=== PATIENT | male | born 1960 | race Caucasian/White ===

== ENCOUNTER → 2016-10-28 | Outpatient (CLI) | payer OTHER ==
--- NOTE | 2016-10-29 08:39 | REP ---
MRI LUMBAR SPINE WITHOUT CONTRAST: HISTORY: Upper back pain. Lifting injury. Left leg and hip pain. No comparison radiographs. TECHNIQUE: Sagittal and axial T1 and T2-weighted scans are acquired in the usual fashion with and without fat saturation. Sequences include spin echo, turbo spin-echo, and STIR imaging sequences. MRI FINDINGS: Cortical and medullary bone signal intensity are normal. Lumbar vertebral body heights are preserved. Alignment is normal. Conus medullaris terminates at the L1 level and is unremarkable in appearance. There is degenerative disc disease to some degree at each level, most pronounced at L4-5 and L3-4. There is disc space narrowing and osteophyte formation and posterior bulging at the T11-12 level. No cord compression seen. Normal caliber aorta. At L1-2, axial and sagittal images demonstrate left-sided disc bulging no central canal stenosis or neural foraminal narrowing. At L2-3, canal size is borderline. There is diffuse disc bulging. Mild facet and ligamentum hypertrophy are seen along with developmentally short pedicles. At L3-4, there is mild central canal stenosis due to diffuse moderate disc bulging, developmentally short pedicles and some ligamentum flavum and facet hypertrophy. There is mild bilateral neural foraminal encroachment from bulging disc margins. At L4-5, canal size is borderline. There is diffuse disc bulging. There is neural foraminal narrowing on the left due to discogenic spurring and facet hypertrophy. Moderate facet hypertrophy is noted left more so than right and L4-5. There is some fluid in the left facet joint. At L5-S1, there is facet hypertrophy bilaterally minimal disc bulging. No central canal stenosis or neural foraminal narrowing is seen. IMPRESSION: Central canal stenosis at L3-4 and to a lesser extent L2-3 and L4-5. Left-sided neural foraminal narrowing at L4-5 and mild encroachment at L3-4 bilaterally. Signed by Kemar Leon MD 10/29/2016 10:06 A
--- NOTE | 2016-10-29 08:41 | REP ---
MRI THORACIC SPINE WITHOUT CONTRAST: HISTORY: Upper back pain. TECHNIQUE: Sagittal and axial T1 and T2-weighted scans are acquired in the usual fashion with and without fat saturation. Sequences include spin echo, turbo spin-echo, and STIR imaging sequences. FINDINGS: Thoracic vertebral body heights are preserved. Alignment is normal. Cortical and medullary bone signal intensity is normal. Thoracic cord is normal in coarse, caliber and signal intensity. There are Schmorl's nodes at the T11-12 level. Mild degenerative disc disease is seen with disc space narrowing and decreased signal intensity at several mid thoracic levels. There is a small right posterior disc bulge at T6-7 effacing the ventral subarachnoid space. There is a left posterior disc protrusion at T 3-4 effacing the left ventral lateral subarachnoid space but not compressing the cord. No other thoracic disc protrusion is seen. No neural foraminal narrowing is seen. There is some thoracic facet hypertrophy at T10-11, T9-10, T8-9 and T7-8 bilaterally. No cord compressive lesion or neural foraminal lesion is seen. IMPRESSION: Mild degenerative spondylosis changes as above. No cord compressive lesion seen. Signed by Kemar Leon MD 10/29/2016 10:07 A
== END ==
LOC: M RAD 17:19
PROVIDERS: ATTEND Emergency Medicine
DX: M47.894 Other spondylosis, thoracic region (principal); M54.17 Radiculopathy, lumbosacral region

== ENCOUNTER → 2020-10-10 | Outpatient (CLI) | payer SELFPAY | LOC: M LABSMTC 08:35 | PROVIDERS: ATTEND Pediatrics | DX: Z20.822 Contact with and (suspected) exposure to COVID-19 (principal) ==

== ENCOUNTER → 2020-10-27 | Outpatient (CLI) | payer SELFPAY | LOC: M LABSMTC 09:39 | PROVIDERS: ATTEND Pediatrics | DX: Z20.828 Contact with and (suspected) exposure to other viral communicable diseases (principal) ==

== ENCOUNTER → 2024-08-02 | Outpatient (CLI) | payer MEDICARE | LOC: M RAD 07:28 | PROVIDERS: ATTEND Internal Medicine Gastroenterology | DX: K31.89 Other diseases of stomach and duodenum (principal); W44.F1XA Bezoar entering into or through a natural orifice, initial encounter | CPT/HCPCS: 78264; A9541 ==

== ENCOUNTER 2025-09-14 11:58 | Inpatient (IN) | payer MEDICARE, OTHER ==
[2025-09-14] VITALS (27 sets, daily range): BP systolic 77–156; BP diastolic 45–89; TEMP 97.9–99; O2SAT 87–100
[~2025-09-14] VITALS: Ht 182.9 cm; Wt 71.6 kg
[2025-09-14] MEDS ORDERED: DEXTROSE 50% 50 ML SYRINGE As Ordered ONE (12:19)
[2025-09-14] MEDS: DEXTROSE 50% (25 GM/50 ML) VIAL IV ONE (12:22)
[2025-09-14 12:29] LABS: BASO # 0.0 10^3/uL (0.0-0.2); BASO % 0.1 % (0.0-1.0); EOS # 0.0 10^3/uL (0.0-0.5); EOS % 0.2 % (0.0-3.0); LYMPH # 0.9 10^3/uL (1.5-5.0); LYMPH % 10.1 % (24.0-44.0); MONO # 0.4 10^3/uL (0.0-0.8); MONO % 4.3 % (2.0-8.0); NEUTROPHILS # 7.4 10^3/uL (1.5-8.5); NEUTROPHILS % 84.5 % (36.0-66.0); PLATELET COUNT, AUTOMATED 225 10^3/uL (150-450)
[2025-09-14 13:10] LABS: VENOUS BASE EXCESS -15.2 (-2.0-2.0); VENOUS HCO3 13.5 MMOL/L (23.0-27.0); VENOUS O2 SATURATION 63.4 % (60.0-80.0); VENOUS PARTIAL PRESSURE CO2 44.2 mmHg (38.0-50.0); VENOUS PARTIAL PRESSURE O2 38.0 mmHg (30.0-50.0); VENOUS PH 7.104 UNITS (7.330-7.430); VENOUS STANDARD HCO3 12.2 MMOL/L; VENOUS TOTAL CO2 14.9 MMOL/L (24.0-28.0)
[2025-09-14 13:14] LABS: ALT/SGPT < 9 U/L (7.0-40); AST/SGOT 10 U/L (<34); CALCIUM LEVEL 6.7 MG/DL (8.3-10.6); CARBON DIOXIDE LEVEL 16 MMOL/L (20-31); CHLORIDE LEVEL 113 MMOL/L (98-107); CK-MB VALUE MASS 5.6 NG/ML (<3.6); CREATININE FOR GFR 4.67 MG/DL (0.70-1.30); GLOMERULAR FILTRATION RATE 13.1 (>49); MAGNESIUM LEVEL 1.2 MG/DL (1.8-2.4); POTASSIUM SERUM 3.9 MMOL/L (3.5-5.1); SODIUM LEVEL 141 MMOL/L (136-145)
[2025-09-14] MEDS: LIDOCAINE 2% 5 ML JELLY UROJET TOP ONE (13:15)
[2025-09-14 13:16] LABS: C REACTIVE PROTEIN QUANTITATIV 2.89 MG/DL (<1.0); CPK CREATINE PHOSPHOKINASE 46 U/L (46-171); MB/CK RELATIVE INDEX 12.17 (< OR =4)
[2025-09-14 13:18] LABS: FREE T4 1.01 NG/DL (0.89-1.76)
[2025-09-14 13:26] LABS: KETONE, URINE AUTO RFX NEGATIVE (NEGATIVE); NITRITE, URINE AUTO RFX NEGATIVE (NEGATIVE); RBC, URINE AUTO RFX 28 /HPF (0-3); SQUAM EPITHELIAL CELL UR AURFX 0 /HPF (0-6)
[2025-09-14 13:28] LABS: LEUKOCYTE ESTERASE UR AUTO RFX 1+ (NEGATIVE); WBC, URINE AUTO RFX TNTC /HPF (0-3)
[2025-09-14] MEDS: PIPERACILLIN/TAZOBACTAM SOD 4.5 GM in DEXTROSE 5% (D5W) ADV/MINI-BAG 50 ML IV ONE (13:32)
[2025-09-14] MEDS: [UNRECOGNIZED DRUG - OTHER] IV STA (13:32)
[2025-09-14] MEDS: NS 0.9% IV STA (13:32)
[2025-09-14] MEDS ORDERED: NOREPINEPHRINE 4 MG IN D5W 250 ML IVBAG (16 MCG/ML) As Ordered ONE (13:37)
[2025-09-14 13:38] LABS: INR 1.3
[2025-09-14] MEDS: NOREPINEPHRINE 4MG IN D5 250ML 4 MG in IV 1 EA IV SCH ×2 (13:42→17:44)
[2025-09-14 14:12] LABS: CK-MB VALUE MASS 6.4 NG/ML (<3.6)
[2025-09-14] MEDS: SODIUM BICARBONATE 150 MEQ in D5W 1,000 ML IV SCH (14:14)
[2025-09-14 14:15] LABS: CPK CREATINE PHOSPHOKINASE 64 U/L (46-171); MB/CK RELATIVE INDEX 10.00 (< OR =4)
[2025-09-14] MEDS: MAG SULF 1GM/100ML (MAG RUN) 1 GM in IV 1 EA IV ONE (14:42)
[2025-09-14] MEDS ORDERED: VITA100017 PO (14:47)
[2025-09-14] MEDS ORDERED: TAMS1CAP17 PO (14:47)
[2025-09-14] MEDS ORDERED: MECL-86 PO (14:47)
[2025-09-14] MEDS ORDERED: LOPE1CAP5 PO (14:47)
[2025-09-14] MEDS: D10W 1,000 ML IV SCH (14:47)
[2025-09-14] MEDS ORDERED: TIZA10TA PO (14:47)
[2025-09-14] MEDS ORDERED: FERR325T19 PO (14:47)
[2025-09-14] MEDS ORDERED: GLIP5TAB17 PO (14:47)
[2025-09-14] MEDS ORDERED: METF-838 PO (14:48)
[2025-09-14] MEDS ORDERED: HOME MED LIST COMPLETE! XX SCH (14:50)
[2025-09-14] MEDS ORDERED: D10W 1,000 ML IV SCH (15:40)
[2025-09-14] MEDS: ONDANSETRON 4MG/2ML VIAL IV PRN (17:44)
[2025-09-14] MEDS: metroNIDAZOLE 500 MG in IV 1 EA IV SCH (17:45)
[2025-09-14] MEDS: SODIUM BICARBONATE 100 MEQ in D5W 1,000 ML IV SCH (17:52)
[2025-09-14] MEDS: VANCOMYCIN 125MG CAPSULE PO SCH (18:26)
[2025-09-14] MEDS: cefTRIAXone SOD 1 GM in DEXTROSE 5% (D5W) ADV/MINI-BAG 50 ML IV SCH (18:27)
[2025-09-14] MEDS: HEPARIN SOD 5000 UNITS/ML 1 ML VIAL/SYRINGE SC SCH (21:11)
[2025-09-14] MEDS ORDERED: PIPERACILLIN/TAZOBACTAM SOD 2.25 GM in DEXTROSE 5% (D5W) ADV/MINI-BAG 50 ML IV SCH (22:00)
[2025-09-15] VITALS (98 sets, daily range): BP systolic 70–174; BP diastolic 44–91; TEMP 97.7–99.1; O2SAT 93–100
[2025-09-15 04:34] LABS: BASO # 0.0 10^3/uL (0.0-0.2); BASO % 0.2 % (0.0-1.0); EOS # 0.1 10^3/uL (0.0-0.5); EOS % 0.7 % (0.0-3.0); LYMPH # 1.2 10^3/uL (1.5-5.0); LYMPH % 12.5 % (24.0-44.0); MONO # 0.7 10^3/uL (0.0-0.8); MONO % 7.0 % (2.0-8.0); NEUTROPHILS # 7.7 10^3/uL (1.5-8.5); NEUTROPHILS % 78.4 % (36.0-66.0); PLATELET COUNT, AUTOMATED 263 10^3/uL (150-450)
[2025-09-15 04:54] LABS: CALCIUM LEVEL 6.1 MG/DL (8.3-10.6); CARBON DIOXIDE LEVEL 16.0 MMOL/L (20-31); CHLORIDE LEVEL 110.0 MMOL/L (98-107); CREATININE FOR GFR 4.23 MG/DL (0.70-1.30); GLOMERULAR FILTRATION RATE 14.7 (>49); MAGNESIUM LEVEL 1.2 MG/DL (1.8-2.4); PHOSPHORUS LEVEL 4.5 MG/DL (2.4-5.1); POTASSIUM SERUM 3.2 MMOL/L (3.5-5.1); SODIUM LEVEL 139.0 MMOL/L (136-145)
[2025-09-15] MEDS: cefTRIAXone SOD 2 GM in DEXTROSE 5% (D5W) ADV/MINI-BAG 50 ML IV SCH (05:12)
[2025-09-15] MEDS: MAG SULF 1GM/100ML (MAG RUN) 1 GM in IV 1 EA IV SCH (06:06)
[2025-09-15] MEDS: DEXTROSE 5% IV ONE (06:06)
[2025-09-15] MEDS: MINI IV ONE (06:06)
[2025-09-15] MEDS: CALCIUM GLUCONATE IV ONE (06:06)
[2025-09-15] MEDS: KCL 10MEQ/100ML SWI (KRUN) 10 MEQ in IV 1 EA IV SCH (08:37)
[2025-09-15] MEDS ORDERED: KCL 10MEQ/100ML SWI (KRUN) 10 MEQ in IV 1 EA IV SCH (09:00)
[2025-09-15] MEDS: AMPICILLIN SOD 2 GM in DEXTROSE 5% (D5W) MINI-BAG PLU 100 ML IV SCH (09:40)
[2025-09-15] MEDS: TAMSULOSIN 0.4 MG CAP PO SCH (09:41)
[2025-09-15] MEDS: PANTOPRAZOLE 40MG VIAL IV SCH (09:41)
[2025-09-15] MEDS ORDERED: cefTRIAXone SOD 2 GM in DEXTROSE 5% (D5W) ADV/MINI-BAG 50 ML IV SCH (17:00)
[2025-09-15] MEDS ORDERED: AMPICILLIN SOD 2 GM in DEXTROSE 5% (D5W) MINI-BAG PLU 100 ML IV SCH (18:00)
[2025-09-15] MEDS: VANCOMYCIN HCL 1,000 MG, VIAL MATE ADAPTER 1 EACH in NS 250 ML IV ONE (18:36)
[2025-09-15] MEDS: FIDAXOMICIN 200 MG TAB PO SCH (20:09)
[2025-09-15] MEDS ORDERED: GLUCAGON INJ 1 MG VIAL SC PRN (20:15)
[2025-09-15] MEDS ORDERED: DEXTROSE 50% 50 ML SYRINGE IV PRN (20:15)
[2025-09-15] MEDS ORDERED: GLUCOSE 4 GM CHEW PO PRN (20:15)
[2025-09-15] MEDS: INSULIN LISPRO (NovoLOG) PER UNIT SC SCH (21:15)
[2025-09-15] MEDS: GABAPENTIN 300 MG CAP PO ONE (21:15)
[2025-09-16] VITALS (46 sets, daily range): BP systolic 76–161; BP diastolic 49–86; TEMP 97.5–98.6; O2SAT 94–98
[2025-09-16 06:18] LABS: BASO # 0.0 10^3/uL (0.0-0.2); BASO % 0.3 % (0.0-1.0); EOS # 0.2 10^3/uL (0.0-0.5); EOS % 2.2 % (0.0-3.0); LYMPH # 1.4 10^3/uL (1.5-5.0); LYMPH % 17.6 % (24.0-44.0); MONO # 0.4 10^3/uL (0.0-0.8); MONO % 5.7 % (2.0-8.0); NEUTROPHILS # 5.6 10^3/uL (1.5-8.5); NEUTROPHILS % 73.2 % (36.0-66.0); PLATELET COUNT, AUTOMATED 242 10^3/uL (150-450)
[2025-09-16 06:53] LABS: CALCIUM LEVEL 6.6 MG/DL (8.3-10.6); CARBON DIOXIDE LEVEL 22.0 MMOL/L (20-31); CHLORIDE LEVEL 107.0 MMOL/L (98-107); CREATININE FOR GFR 2.71 MG/DL (0.70-1.30); GLOMERULAR FILTRATION RATE 25.1 (>49); MAGNESIUM LEVEL 1.2 MG/DL (1.8-2.4); PHOSPHORUS LEVEL 2.8 MG/DL (2.4-5.1); POTASSIUM SERUM 3.4 MMOL/L (3.5-5.1); SODIUM LEVEL 140.0 MMOL/L (136-145)
[2025-09-16] MEDS ORDERED: VANCOMYCIN HCL 1,000 MG, VIAL MATE ADAPTER 1 EACH in NS 250 ML IV SCH (08:00)
[2025-09-16] MEDS: POTASSIUM CHLORIDE 10% LIQ 20MEQ/15ML UDC PO ONE (08:10)
[2025-09-16] MEDS: INSULIN LISPRO (NovoLOG) PER UNIT SC SCH (08:10)
[2025-09-16] MEDS: VANCOMYCIN HCL 1,500 MG, VIAL MATE ADAPTER 1 EACH in NS 500 ML IV ONE (08:11)
[2025-09-16] MEDS: MAG SULF 1GM/100ML (MAG RUN) 1 GM in IV 1 EA IV SCH (08:31)
[2025-09-16] MEDS ORDERED: VANCOMYCIN INTERMITTENT/PULSE DOSING BY CLINICAL PHARMACIST PER DOSING PROTOCOL XX SCH (10:25)
[2025-09-16] MEDS: LR 1,000 ML IV ONE (14:47)
[2025-09-16 14:53] LABS: CALCIUM LEVEL 6.6 MG/DL (8.3-10.6); CARBON DIOXIDE LEVEL 23.0 MMOL/L (20-31); CHLORIDE LEVEL 111.0 MMOL/L (98-107); CREATININE FOR GFR 2.27 MG/DL (0.70-1.30); GLOMERULAR FILTRATION RATE 31.0 (>49); POTASSIUM SERUM 3.9 MMOL/L (3.5-5.1); SODIUM LEVEL 142.0 MMOL/L (136-145)
[2025-09-16] MEDS: SODIUM BICARBONATE 75 MEQ in NS 0.45% 1,000 ML IV SCH (15:05)
[2025-09-16] MEDS: VANCOMYCIN HCL 500 MG in DEXTROSE 5% (D5W) MINI-BAG PLU 100 ML IV ONE (21:57)
[2025-09-17 06:08] VITALS: BP 156/79; TEMP 98.7; O2SAT 95
[2025-09-17 07:15] LABS: BASO # 0.0 10^3/uL (0.0-0.2); BASO % 0.3 % (0.0-1.0); EOS # 0.2 10^3/uL (0.0-0.5); EOS % 2.6 % (0.0-3.0); LYMPH # 1.4 10^3/uL (1.5-5.0); LYMPH % 21.7 % (24.0-44.0); MONO # 0.4 10^3/uL (0.0-0.8); MONO % 5.5 % (2.0-8.0); NEUTROPHILS # 4.6 10^3/uL (1.5-8.5); NEUTROPHILS % 68.8 % (36.0-66.0); PLATELET COUNT, AUTOMATED 230 10^3/uL (150-450)
[2025-09-17 07:36] LABS: CALCIUM LEVEL 6.7 MG/DL (8.3-10.6); CARBON DIOXIDE LEVEL 27.0 MMOL/L (20-31); CHLORIDE LEVEL 110.0 MMOL/L (98-107); CREATININE FOR GFR 1.84 MG/DL (0.70-1.30); GLOMERULAR FILTRATION RATE 39.9 (>49); MAGNESIUM LEVEL 1.2 MG/DL (1.8-2.4); PHOSPHORUS LEVEL 2.0 MG/DL (2.4-5.1); POTASSIUM SERUM 4.0 MMOL/L (3.5-5.1); SODIUM LEVEL 145.0 MMOL/L (136-145)
[2025-09-17] MEDS: VANCOMYCIN HCL 1,000 MG, VIAL MATE ADAPTER 1 EACH in NS 250 ML IV SCH (08:22)
[2025-09-17] MEDS: MAG SULF 1GM/100ML (MAG RUN) 1 GM in IV 1 EA IV SCH (11:14)
[2025-09-17 14:54] VITALS: BP 128/72; TEMP 98.1; O2SAT 97
[2025-09-17 20:15] VITALS: BP 188/82
[2025-09-17] MEDS: amLODIPine 5 MG TAB PO ONE (20:15)
[2025-09-17 20:42] VITALS: BP 183/96; TEMP 98.1; O2SAT 97
[2025-09-17 21:36] VITALS: BP 158/87
[2025-09-18 05:52] VITALS: BP 177/80; TEMP 98.6; O2SAT 98
[2025-09-18 06:41] LABS: BASO # 0.0 10^3/uL (0.0-0.2); BASO % 0.3 % (0.0-1.0); EOS # 0.2 10^3/uL (0.0-0.5); EOS % 2.4 % (0.0-3.0); LYMPH # 1.3 10^3/uL (1.5-5.0); LYMPH % 18.7 % (24.0-44.0); MONO # 0.3 10^3/uL (0.0-0.8); MONO % 4.9 % (2.0-8.0); NEUTROPHILS # 5.1 10^3/uL (1.5-8.5); NEUTROPHILS % 72.7 % (36.0-66.0); PLATELET COUNT, AUTOMATED 205 10^3/uL (150-450)
[2025-09-18 07:18] LABS: CALCIUM LEVEL 7.4 MG/DL (8.3-10.6); CARBON DIOXIDE LEVEL 28.0 MMOL/L (20-31); CHLORIDE LEVEL 111.0 MMOL/L (98-107); CREATININE FOR GFR 1.46 MG/DL (0.70-1.30); GLOMERULAR FILTRATION RATE 52.7 (>49); MAGNESIUM LEVEL 1.3 MG/DL (1.8-2.4); PHOSPHORUS LEVEL 1.8 MG/DL (2.4-5.1); POTASSIUM SERUM 3.9 MMOL/L (3.5-5.1); SODIUM LEVEL 147.0 MMOL/L (136-145)
[2025-09-18] MEDS: MAG SULF 1GM/100ML (MAG RUN) 1 GM in IV 1 EA IV SCH (08:05)
[2025-09-18] MEDS: D5W/0.45% SODIUM CHLORIDE 1,000 ML IV SCH (08:05)
[2025-09-18 12:25] VITALS: BP 140/75; TEMP 98.5; O2SAT 95
[2025-09-18 14:00] VITALS: BP 129/68; TEMP 98.7; O2SAT 96
[2025-09-18] MEDS: VANCOMYCIN HCL 1,250 MG, VIAL MATE ADAPTER 1 EACH in NS 250 ML IV SCH (14:01)
[2025-09-18] MEDS: GABAPENTIN 100 MG CAP PO SCH (17:51)
[2025-09-18 20:08] VITALS: BP 141/81; TEMP 98.3; O2SAT 98
[2025-09-19 05:26] VITALS: BP 142/70; TEMP 98.2; O2SAT 96
[2025-09-19 08:12] LABS: BASO # 0.0 10^3/uL (0.0-0.2); BASO % 0.3 % (0.0-1.0); EOS # 0.2 10^3/uL (0.0-0.5); EOS % 2.5 % (0.0-3.0); LYMPH # 1.4 10^3/uL (1.5-5.0); LYMPH % 21.6 % (24.0-44.0); MONO # 0.4 10^3/uL (0.0-0.8); MONO % 5.8 % (2.0-8.0); NEUTROPHILS # 4.6 10^3/uL (1.5-8.5); NEUTROPHILS % 69.1 % (36.0-66.0); PLATELET COUNT, AUTOMATED 186 10^3/uL (150-450)
[2025-09-19] MEDS: MAGNESIUM OXIDE 400 MG TAB PO SCH (08:18)
[2025-09-19 08:46] LABS: CALCIUM LEVEL 7.0 MG/DL (8.3-10.6); CARBON DIOXIDE LEVEL 29.0 MMOL/L (20-31); CHLORIDE LEVEL 105.0 MMOL/L (98-107); CREATININE FOR GFR 1.13 MG/DL (0.70-1.30); GLOMERULAR FILTRATION RATE 71.7 (>49); MAGNESIUM LEVEL 1.2 MG/DL (1.8-2.4); PHOSPHORUS LEVEL 1.7 MG/DL (2.4-5.1); POTASSIUM SERUM 3.9 MMOL/L (3.5-5.1); SODIUM LEVEL 141.0 MMOL/L (136-145)
[2025-09-19 08:47] LABS: CALCIUM LEVEL 7.4 MG/DL (8.3-10.6); CARBON DIOXIDE LEVEL 29.0 MMOL/L (20-31); CHLORIDE LEVEL 103.0 MMOL/L (98-107); CREATININE FOR GFR 1.08 MG/DL (0.70-1.30); GLOMERULAR FILTRATION RATE 75.7 (>49); PHOSPHORUS LEVEL 1.6 MG/DL (2.4-5.1); POTASSIUM SERUM 3.8 MMOL/L (3.5-5.1); SODIUM LEVEL 139.0 MMOL/L (136-145)
[2025-09-19 11:17] LABS: MAGNESIUM LEVEL 1.3 MG/DL (1.8-2.4)
[2025-09-19 14:00] VITALS: BP 130/65; TEMP 98.5; O2SAT 96
[2025-09-19 19:41] VITALS: BP 158/82; TEMP 98.5; O2SAT 95
[2025-09-20 04:00] VITALS: BP 149/71; TEMP 99.3; O2SAT 95
[2025-09-20 06:24] LABS: PLATELET COUNT, AUTOMATED 163 10^3/uL (150-450)
[2025-09-20 06:47] LABS: CALCIUM LEVEL 7.4 MG/DL (8.3-10.6); CARBON DIOXIDE LEVEL 30.0 MMOL/L (20-31); CHLORIDE LEVEL 103.0 MMOL/L (98-107); CREATININE FOR GFR 1.15 MG/DL (0.70-1.30); GLOMERULAR FILTRATION RATE 70.2 (>49); MAGNESIUM LEVEL 1.1 MG/DL (1.8-2.4); POTASSIUM SERUM 4.0 MMOL/L (3.5-5.1); SODIUM LEVEL 140.0 MMOL/L (136-145)
[2025-09-20] MEDS: MAG SULF 1GM/100ML (MAG RUN) 1 GM in IV 1 EA IV SCH (09:16)
[2025-09-20] MEDS: MAG SULF 1GM/100ML (MAG RUN) 1 GM in IV 1 EA IV ONE (12:20)
[2025-09-20 14:00] VITALS: BP 125/66; TEMP 98.7; O2SAT 96
[2025-09-20 19:33] VITALS: BP 127/74; TEMP 98.5; O2SAT 95
[2025-09-21 04:59] VITALS: BP 146/74; TEMP 98.5; O2SAT 97
[2025-09-21 06:20] LABS: PLATELET COUNT, AUTOMATED 160 10^3/uL (150-450)
[2025-09-21 06:48] LABS: CALCIUM LEVEL 7.6 MG/DL (8.3-10.6); CARBON DIOXIDE LEVEL 32.0 MMOL/L (20-31); CHLORIDE LEVEL 102.0 MMOL/L (98-107); CREATININE FOR GFR 1.19 MG/DL (0.70-1.30); GLOMERULAR FILTRATION RATE 67.4 (>49); MAGNESIUM LEVEL 1.6 MG/DL (1.8-2.4); POTASSIUM SERUM 4.5 MMOL/L (3.5-5.1); SODIUM LEVEL 139.0 MMOL/L (136-145)
[2025-09-21] MEDS: MAG SULF 1GM/100ML (MAG RUN) 1 GM in IV 1 EA IV SCH (08:07)
[2025-09-21 14:00] VITALS: BP 148/74; TEMP 98.2; O2SAT 96
[2025-09-21 19:32] VITALS: BP 131/78; TEMP 98.7; O2SAT 98
[2025-09-22 04:45] VITALS: BP 167/84; TEMP 98.4; O2SAT 94
[2025-09-22 07:52] LABS: PLATELET COUNT, AUTOMATED 183 10^3/uL (150-450)
[2025-09-22 08:16] LABS: CALCIUM LEVEL 8.0 MG/DL (8.3-10.6); CARBON DIOXIDE LEVEL 33.0 MMOL/L (20-31); CHLORIDE LEVEL 102.0 MMOL/L (98-107); CREATININE FOR GFR 1.21 MG/DL (0.70-1.30); GLOMERULAR FILTRATION RATE 66.0 (>49); MAGNESIUM LEVEL 1.5 MG/DL (1.8-2.4); POTASSIUM SERUM 4.7 MMOL/L (3.5-5.1); SODIUM LEVEL 140.0 MMOL/L (136-145)
[2025-09-22] MEDS ORDERED: FIDA200TA PO (10:51)
[2025-09-22] MEDS ORDERED: MAGN400T33 PO (10:51)
[2025-09-22] MEDS ORDERED: GABA-1171 PO (10:51)
== END 2025-09-22 12:41 | DRG 698 ==
LOC: M ED 11:58 → EDBD 11:58 → M ED INP 15:38 → M ICU 16:53 → M MS5PR 09-16 17:58
PROVIDERS: ADMIT Internal Medicine; ATTEND Student in an Organized Health Care Education/Training Program
DX: T83.511A Infection and inflammatory reaction due to indwelling urethral catheter, initial encounter (principal); A41.9 Sepsis, unspecified organism; R65.21 Severe sepsis with septic shock; R57.1 Hypovolemic shock; G93.41 Metabolic encephalopathy; N17.9 Acute kidney failure, unspecified; A04.72 Enterocolitis due to Clostridium difficile, not specified as recurrent; E87.20 Acidosis, unspecified; E87.0 Hyperosmolality and hypernatremia; E11.22 Type 2 diabetes mellitus with diabetic chronic kidney disease; I12.9 Hypertensive chronic kidney disease with stage 1 through stage 4 chronic kidney disease, or unspecified chronic kidney disease; E11.40 Type 2 diabetes mellitus with diabetic neuropathy, unspecified; E11.649 Type 2 diabetes mellitus with hypoglycemia without coma; E78.5 Hyperlipidemia, unspecified; R53.1 Weakness; N18.32 Chronic kidney disease, stage 3b; D63.8 Anemia in other chronic diseases classified elsewhere; E87.6 Hypokalemia; L73.9 Follicular disorder, unspecified; E83.42 Hypomagnesemia; K21.9 Gastro-esophageal reflux disease without esophagitis; Y84.6 Urinary catheterization as the cause of abnormal reaction of the patient, or of later complication, without mention of misadventure at the time of the procedure; N39.0 Urinary tract infection, site not specified; G47.33 Obstructive sleep apnea (adult) (pediatric); L89.891 Pressure ulcer of other site, stage 1; Z79.899 Other long term (current) drug therapy